=== PATIENT | female | born 2000 | race Caucasian/White ===

== ENCOUNTER 2023-07-04 11:35 | Outpatient (REF) | payer SELFPAY ==
--- NOTE | 2023-07-08 13:40 | MHC.AU.HA3 ---
Hearing Instrument Follow-Up- Binaural Date of Visit: 07/04/23 Follow-Up Summary: Accompanied by father, Seferino. Diane reported that she works on [employer] over the summer and her roommate snores so loudly it affects her sleep. She has tried OTC ear plugs without success due to issues with comfort. She would like custom ear plugs to use at night to dampen her roommate's snoring. Advised cannot guarantee how much the plugs will attenuate the snoring; however, will likely help with comfort. Impressions taken, bilaterally, without incident. Diane also reported her ears itch - some wax, bilaterally. Suggested EarWax MD drops or full removal by PCP. Diane reported she will not be able to attend an additional appointment to have the ear plugs fit as she will already be on [employer] at that time. Advised ideally would prefer her attend appointment to assess the fit; however, if not, someone can tack picker the ear plugs, if necessary. Explained six month remake warranty and she would need to come back for appointments if issues with fit or comfort arise. Diane and her father wanted to proceed. Approved $245.00 due at tack picker. Her father will likely pick them up and deliver them to her. Recommendations: Patient will be contacted when materials have arrived. Diagnosis Code(s): Primary Diagnosis: Z01.12 Encounter for hearing conservation and treatment Signature: Provider: Marcie Dunlap, [facility]
== END 2023-07-04 11:36 | disposition home or self-care (01) ==
LOC: HO.HAP 11:35
PROVIDERS: Visit Provider Nurse Practitioner Family
DX: Z13.89 Encounter for screening for other disorder (principal)